=== PATIENT | male | born 1950 | race Caucasian/White ===

== ENCOUNTER → 2017-06-17 | Day surgery (SDC) | payer OTHER ==
[~2017-06-17] VITALS: Ht 175.3 cm; Wt 98.8 kg
[~2017-06-17] MED LIST: *MEPERIDINE 25 MG INJ VIAL PERIprocedural Use ONLY ONE; *morphine SULFATE 4 MG/ML PERIprocedure ONLY ONE; ACETAMINOPHEN 1000 MG/100 ML 100 ML IV ONE; CHLORHEXIDINE GLUCONATE 2 % 1 PACK (2 CLOTHS) TOPICAL PRN; CHOL1TAB41 PO; CO Q100C9 PO; DEXAMETHASONE SOD PHOS 4 MG/ML VIAL IV ONE; DO NOT ADM ANY ANTICOAGULANT DRUGS PRN; FISHCAP4 PO; GABA300C5 PO; GLYCOPYRROLATE 1 MG/5 ML SYRINGE IV PUSH ONE; LACTATED RINGER'S 1000 ML IV PRN; LIDOCAINE 0.5%/EPINEPHrine 1:200,000 SOLN 50 ML VIAL ONE; LIDOCAINE HCL 1% PF 5 ML SYRINGE OTHER ONE; MAGI615T2; METF1000 PO; METO100T PO; METOPROLOL TARTRATE 25 MG TAB PO PRN; MIDAZOLAM HCL 2 MG/2 ML VIAL ONE; ONDANSETRON HCL 4 MG/2 ML VIAL IV ONE; POVIDONE IODINE 5% (ANTISEPSIS KIT) 4 APPLICATIONS EACH NARE PRN; PROPOFOL 200 MG/20 ML AMP IV ONE; SODIUM CHLORID 0.9% 500 ML IV PRN; SUGAMMADEX SODIUM 200 MG/2 ML VIAL IV PUSH ONE; TOPI100 PO; VITA100T65 PO; VITA250T3 PO; WARF-18 PO; ceFAZolin INJ 1,000 MG VIAL IV ONE; ePHEDrine/NS 25 MG/5 ML SYRINGE IV ONE; oxyCODONE/ACETAMINOPHEN 5 MG/325 MG TAB ONE
[2017-06-17 13:27] LABS: AUTOMATED NEUTROPHIL # 9.9 TH/MM3 (1.8-7.7); BASOPHIL # 0.1 TH/MM3 (0-0.2); BASOPHIL % 0.9 % (0.0-2.0); EOSINOPHIL # 0.1 TH/MM3 (0-0.4); EOSINOPHIL % 0.5 % (0.0-4.0); HEMATOCRIT 43.3 % (39.0-51.0); HEMOGLOBIN 15.4 GM/DL (13.0-17.0); LYMPHOCYTE # 1.7 TH/MM3 (1.0-4.8); MEAN CELL VOLUME 96.6 FL (80.0-100.0); MEAN CORPUSCULAR HEMOGLOBIN 34.4 PG (27.0-34.0); MEAN CORPUSCULAR HGB CONC 35.6 % (32.0-36.0); MEAN PLATELET VOLUME 7.5 FL (7.0-11.0); MONO % 8.1 % (0.0-8.0); NEUT % 77.5 % (16.0-70.0); PLATELET COUNT 356 TH/MM3 (150-450); RED BLOOD COUNT 4.48 MIL/MM3 (4.50-5.90); RED CELL DISTRIBUTION WIDTH 12.9 % (11.6-17.2); WHITE BLOOD COUNT 12.7 TH/MM3 (4.0-11.0)
[2017-06-17 13:35] LABS: PROTHROMBIN TIME - PATIENT 10.5 SEC (9.8-11.6)
[2017-06-17 13:38] LABS: BICARBONATE 24.3 MEQ/L (21.0-32.0); CALCIUM 9.3 MG/DL (8.5-10.1); CREATININE 0.82 MG/DL (0.60-1.30)
[2017-06-17 18:45] VITALS: BP 137/62; PULSE 85; RESP 18; TEMP 98.3; O2SAT 99
--- NOTE | 2017-06-18 08:51 | EKG ---
Date Performed: 06/17/2017 Time Performed: 13:07:00 PTAGE: 67 years EKG: Sinus rhythm NORMAL ECG NO PREVIOUS TRACING DOCTOR: Shiela Hogue Interpretating Date/Time 06/18/2017 08:48:48
--- NOTE | 2017-06-18 12:34 | MR ---
cc: Waldemar Trimble MD, MD 06/17/2017 PREOPERATIVE DIAGNOSIS: Right cervical abscess, with possible fistula. 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 PROCEDURE PERFORMED: Unroofing of abscess with fistulotomy. SURGEON: Waldemar Trimble MD ANESTHESIA: General. INDICATIONS FOR PROCEDURE: This is a 67-year-old who has had a chronic draining area in the perianal skin for several months. In the last few weeks, it has become increasingly sore. He was examined in the office and found to have a large abscess involving the left perianal and buttocks area. It was not possible to examine him further and he presents for exam under anesthesia, with drainage of abscess and possible fistulotomy. DESCRIPTION OF PROCEDURE: The perianal region was prepped and draped in the prone position on the operating room, with induction of general anesthesia. The area was examined. There was a large area of induration and fluctuance in the left ischiorectal and buttocks skin. There was a draining opening in the left anterior perianal skin. The anal canal was examined. There was no supralevator extension. There was fibrosis in the left anterior position, at the level of the dentate line. The fistula was suspected in this location. Skin incision was made over the area of fluctuance and a chronic abscess cavity was entered. It was relatively superficial and filled with granulation. The cavity was large, approximately 10 x 7 cm. The cavity was unroofed entirely. The abscess wall was curetted. A fistula probe was passed retrograde from the internal opening into the process, where there was a granulating tract. Fistulotomy was performed. The fistula was felt to be intersphincteric. Redundant tissue was excised along the fistula tract. Hemostasis was obtained with cautery. Fifty milliliters of 1/2% Xylocaine with epinephrine was injected locally. The wound was packed with Monel's gauze. At the completion of the procedure, there was no evidence of any additional side tracts. The patient tolerated the procedure well. MD DEBI Cesar/BILLIE , 05:44 PM , 06:31 PM ELSA
== END | disposition home or self-care (01) ==
LOC: HSDC 12:11 → EDSTATUS 16:15
PROVIDERS: ATTEND Colon & Rectal Surgery
DX: K61.3 Ischiorectal abscess (principal); I10 Essential (primary) hypertension; E11.9 Type 2 diabetes mellitus without complications; I48.91 Unspecified atrial fibrillation; Z79.01 Long term (current) use of anticoagulants; Z79.84 Long term (current) use of oral hypoglycemic drugs
CPT/HCPCS: 00902; 10061; 46275; 80048; 85025; 85610; 85730; 88305; 93005; J0131; J0690; J1100; J2175; J2250; J2270; J2405; J3010; J7120